=== PATIENT | female | born 1980 | race Caucasian/White ===

== ENCOUNTER 2016-08-31 07:49 | Inpatient (IN) | payer MEDICAID ==
[~2016-08-31] VITALS: Ht 160 cm; Wt 76.5 kg
[~2016-08-31 07:49] MED LIST: PREN1TAB74 PO
[2016-08-31 07:56] VITALS: Ht 160 cm; Wt 76.5 kg
[2016-08-31 07:57] VITALS: BP 133/84; PULSE 68; RESP 19
[2016-08-31] MEDS ORDERED: LACTATED RINGER'S 1,000 ML IV SCH (08:17)
[2016-08-31] MEDS ORDERED: OXYTOCIN 30 UNITS/LR 500 ML IV SCH ×2 (08:30)
[2016-08-31] MEDS ORDERED: METHYLERGONOVINE 0.2 MG INJ IM PRN ×2 (08:30→18:00)
[2016-08-31] MEDS ORDERED: OXYTOCIN 30 UNITS/LR 500 ML IV PRN ×2 (08:30→18:00)
[2016-08-31] MEDS ORDERED: MISOPROSTOL 200 MCG TAB PR PRN ×2 (08:30→18:00)
[2016-08-31] MEDS ORDERED: IBUPROFEN 600 MG TAB PO PRN (08:30)
[2016-08-31] MEDS ORDERED: LIDOCAINE 1% (MPF) 30 ML INJ INJ PRN (08:30)
[2016-08-31] MEDS ORDERED: CARBOPROST 250 MCG INJ IM PRN ×2 (08:30→18:00)
[2016-08-31 08:43] LABS: BASOPHILS % 0.4 % (0.0-2.0); EOSINOPHILS # 0.1 10^3/ul (0.0-0.5); EOSINOPHILS % 0.4 % (0.0-7.0); HEMATOCRIT 35.1 % (37.0-47.0); HEMOGLOBIN 12.2 g/dl (12.0-16.0); LYMPHOCYTES # 2.9 10^3/ul (0.8-2.9); LYMPHOCYTES % 22.9 % (15.0-51.0); MEAN CORPUSCULAR HEMOGLOBIN 33.9 pg (29.0-33.0); MEAN CORPUSCULAR HGB CONC 34.8 g/dl (32.0-37.0); MEAN CORPUSCULAR VOLUME 97.3 fl (82.0-101.0); MEAN PLATELET VOLUME 8.4 fl (7.4-10.4); MONOCYTE # 0.6 10^3/ul (0.3-0.9); MONOCYTES % 4.4 % (0.0-11.0); NEUTROPHILS % 71.9 % (39.0-77.0); PLATELET COUNT 187 10^3/UL (140-440); RED BLOOD COUNT 3.61 10^6/ul (4.20-5.40); RED CELL DISTRIBUTION WIDTH 13.9 % (11.5-14.5); UNCORRECTED WBC 12.6 10^3/ul (4.8-10.8); WHITE BLOOD COUNT 12.6 10^3/ul (4.8-10.8)
[2016-08-31 08:44] LABS: CONDITION 1
--- NOTE | 2016-08-31 08:44 | TRIAGE ---
OB Triage Datetime Report Generated by CPN: 08/31/2016 08:43 Datetime: 08/31/2016 08:30 Labor Evaluation Frequency: IRREGULAR Monitor Mode: External Duration (sec)2399: 80 Quality: Moderate Pattern: Normal: <= 5 Contractions in 10 Minutes Resting Tone Hoyt: Relaxed Heart Rate FHR Baseline Rate: 120 Monitor Mode: External US FHR Baseline Changes: No Baseline Change Variability: Moderate 6-25 bpm Accelerations: 15X15 Decelerations: None Category: Category I Membrane Status: Intact Datetime: 08/31/2016 08:23 Assessment Type: Admission Assessment Vaginal Bleeding: None Maternal Assessment Level of Consciousness: Fully Conscious DTR's/Clonus: DTRs 2+; No Clonus Headache: Denies Blurred Vision: No Respiratory Effort: Unlabored; Regular Rhythm; Equal Expansion Breath Sounds, Left: Clear and Equal Breath Sounds, Right: Clear and Equal Nausea/Vomiting: Denies RUQ Epigastric Pain: Denies Lower Extremities Edema: None Degree: None Upper Extremities Edema: None Degree: None Facial Edema: None Fall Risk Assessment History of Falling: (0) No Secondary Diagnosis: (0) No Ambulatory Aid: (0) Bedrest/Nurse Assist IV Therapy: (0) No Gait: (0) Normal/Bedrest/Immobile Mental Status: (0) Oriented to Own Ability Fall Score: 0 Fall Risk Score Definition: No Risk: No action required Labor Evaluation Frequency: 5 Duration (sec)2399: 80 Quality: Moderate Pattern: Normal: <= 5 Contractions in 10 Minutes Resting Tone Hoyt: Relaxed Heart Rate FHR Baseline Rate: 120 Variability: Moderate 6-25 bpm Decelerations: None Category: Category I Pain Assessment Pain Scale: 9 Pain Presence: Intermittent Pain Type: Cramping; Contraction Pain Location: Abdomen; Back Pain Goal: 5 Vaginal Exam Dilatation (cms): 3.0 Effacement (%): 100 Station: -2 Membrane Status: Intact Datetime: 08/31/2016 08:22 Assessment Type: Admission Assessment Maternal Assessment Level of Consciousness: Fully Conscious DTR's/Clonus: DTRs 2+; No Clonus Headache: Denies Blurred Vision: No Respiratory Effort: Unlabored; Regular Rhythm; Equal Expansion Breath Sounds, Left: Clear and Equal Breath Sounds, Right: Clear and Equal Nausea/Vomiting: Denies RUQ Epigastric Pain: Denies Lower Extremities Edema: None Degree: None Upper Extremities Edema: None Degree: None Facial Edema: None Fall Risk Assessment History of Falling: (0) No Secondary Diagnosis: (0) No Ambulatory Aid: (0) Bedrest/Nurse Assist IV Therapy: (0) No Gait: (0) Normal/Bedrest/Immobile Mental Status: (0) Oriented to Own Ability Fall Score: 0 Fall Risk Score Definition: No Risk: No action required Datetime: 08/31/2016 08:16 Time of Arrival: 08/31/2016 08:16 EGA: 39.6 Arrived By: Wheelchair Datetime: 08/31/2016 08:13 Maternal Assessment Level of Consciousness: Fully Conscious DTR's/Clonus: DTRs 1+ Headache: Denies Blurred Vision: No Respiratory Effort: Unlabored Breath Sounds, Left: Clear and Equal Breath Sounds, Right: Clear and Equal Nausea/Vomiting: Denies RUQ Epigastric Pain: Denies Facial Edema: 1+ Labor Evaluation Frequency: IRREGULAR Monitor Mode: External Duration (sec)2399: 40-50 Quality: Mild Pattern: Normal: <= 5 Contractions in 10 Minutes Resting Tone Hoyt: Relaxed Heart Rate FHR Baseline Rate: 120 Monitor Mode: External US Variability: Moderate 6-25 bpm Accelerations: 10X10 Decelerations: None Category: Category I Pain Assessment Pain Scale: 6 Pain Presence: Intermittent Pain Type: Contraction Pain Location: Back Pain Goal: 3 Pain Relief Measures: Pain Medication Given Membrane Status: Intact Datetime: 08/31/2016 07:57 Vaginal Exam Dilatation (cms): 3.0 Effacement (%): 100 Station: -2 Exam By: ANSHUL MARR Vaginal Bleeding: None Cervix, Consistency: Soft Cervix, Position: Anterior Presentation 'A': Cephalic Datetime: 08/31/2016 07:52 Assessment Type: Triage Maternal Assessment Level of Consciousness: Fully Conscious DTR's/Clonus: DTRs 2+; No Clonus Headache: Denies Blurred Vision: No Respiratory Effort: Unlabored; Regular Rhythm; Equal Expansion Breath Sounds, Left: Clear and Equal Breath Sounds, Right: Clear and Equal Nausea/Vomiting: Denies RUQ Epigastric Pain: Denies Lower Extremities Edema: None Degree: None Upper Extremities Edema: None Degree: None Facial Edema: None Fall Risk Assessment History of Falling: (0) No Secondary Diagnosis: (0) No Ambulatory Aid: (0) Bedrest/Nurse Assist IV Therapy: (0) No Gait: (0) Normal/Bedrest/Immobile Mental Status: (0) Oriented to Own Ability Fall Score: 0 Fall Risk Score Definition: No Risk: No action required Datetime: 08/31/2016 07:51 EGA: 39.6 Datetime: 08/31/2016 07:43 Time of Arrival: 08/31/2016 07:43 Arrived By: Wheelchair Arrived From: Home Chief Complaint: PT CAME IN C/O UC'S Q 5 MIN Movement: Present Contractions: Regular Contractions: 5 MIN Rupture of Membranes: Denies Vaginal Bleeding: None Vaginal Discharge: Denies Recent Sexual Intercouse: Denies Abdominal Trauma: Not Applicable Patient Complaints: Contractions Additional Patient Complaints: NONE Time Provider Notified: 08/31/2016 08:10 Provider Notified: DIMPLE Initial Plan: MONITOR AND VE
[2016-08-31 08:50] LABS: INR 0.87; PROTIME 11.8 Sec (12.2-14.2); PT RATIO 0.9
[2016-08-31 08:51] LABS: PARTIAL THROMBOPLASTIN TIME 24.6 Sec (25.0-35.0)
[2016-08-31] MEDS ORDERED: NALOXONE (0.4 MG/ML) INJ IV PRN (09:00)
[2016-08-31] MEDS ORDERED: ONDANSETRON 4 MG INJ IV PRN (09:00)
[2016-08-31] MEDS ORDERED: LACTATED RINGER'S 1,000 ML IV PRN (09:00)
[2016-08-31] MEDS ORDERED: FENTAnyl 2MCG/ML-ROPIV 0.2% 100 ML BAG EPI SCH (09:00)
[2016-08-31] MEDS ORDERED: DIPHENHYDRAMINE 50 MG INJ IV PRN (09:00)
[2016-08-31 10:34] LABS: URIC ACID 4.6 mg/dl (3.1-7.9)
--- NOTE | 2016-08-31 17:40 | LDN ---
Date/Time of Note Date/Time of Note DATE: 08/31/16 TIME: 17:37 Delivery Summary of a viable baby girl weighing 3255 grams or 7# 3 oz, 19" long and with Apgars of 9/9. Placenta Delivered: Spontaneously Meconium: none Perineum intact?: No Perineal laceration: 1 Perineal laceration repair: First degree perineal laceration repaired with 2-0 chromic. Anesthesia type: Epidural Estimated blood loss: 200 Sponge & Needle done & correct: Yes All needle counts correct: Yes Any foreign bodies felt in the: No (vagina) Problems: Infant Delivery Information Sex Sex: female Apgars 1 Minute: 9 5 Minute: 9 Suctioning Nose & mouth suctioned at kay: No Delee suction performed: No Umbilical Cord Umbilical cord with: 3 Vessels Cord presentations: no nuchal cord Cord Blood was obtained: Yes Mother & Baby Disposition Disposition Mom & Baby to Maternity; Good: Yes Baby to NICU: No CHRISTOPHER MUSA MD Aug 31, 2016 17:39
--- NOTE | 2016-08-31 17:50 | HP ---
Date/Time of Note Date/Time of Note DATE: 08/31/16 TIME: 17:44 OB - History Hx of Present Free Text/Dictation 36 y.o. with an IUP at 39 weeks 6 days came in labor with a cervical exam of 3cm/ 100% effaced/ -2/vtx/intact. PMHx: negative. PSHx: negative. All: PCN. POBHx: x 1 at 38 weeks, fast delivery, 5# 6 oz, son with horseshoe kidney. Last Menstrual Period: Nov 26, 2015 Estimated Due Date: Sep 01, 2016 : 2 Para: 1 Care: Good Care Ultrasounds: Normal mid trimester US Obstetrical Complications: None Past Family/Social History * Past Medical, Surgical, Family and Obstetric Histories reviewed from chart. Blood Type: A+ Rubella: immune RPR/VDRL: Negative GBS Status: Negative HBsAG: Negative OB Admission Exam Vital Signs Vital Signs Vital Signs Date Time Temp Pulse Resp B/P Pulse Ox O2 Delivery O2 Flow Rate FiO2 08/31/16 07:57 98.6 68 19 133/84 99 Room Air Physical Exam HEENT: WNL Heart: Rhythm Normal Lungs: Clear Abdomen: WNL Extremities: Edema (2+) Reflexes: Normal Cervical Dilatation: 3cm Effacement: 100% Station: -2 Membranes: Intact Heart Rate: 140's Varibility: Moderate Contractions on Admission: < 5 Minutes Apart Intensity: Firm Last 72 hours Lab Results CBC & BMP 08/31/16 08:25 Liver Function Test 08/31/16 08:25 Alanine Aminotransferase (ALT/SGPT) 20 Aspartate Amino Transf (AST/SGOT) 21 OB Assessment/Plan Reason for admission: active labor Plan: Expectant Management CHRISTOPHER MUSA MD Aug 31, 2016 17:50
[2016-08-31] MEDS ORDERED: OXYCODONE/ASPIRIN (4.88/325) TAB PO PRN (18:00)
[2016-08-31] MEDS ORDERED: LANOLIN 7 GM TUBE TOP PRN (18:00)
--- NOTE | 2016-08-31 18:14 | DELSUM ---
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 Babies in Womb: 1 Attempted: No Labor Anesthesia: Epidural LABOR INFORMATION Reason for Induction: Not Applicable Onset of Labor: 08/31/2016 04:00 Complete Dilatation: 08/31/2016 14:51 Oxytocin: N/A Group B Beta Strep: Negative Group B Beta Strep: Negative Antibiotics # of Doses: 0 Antibiotics Time of Last Dose: 0 Steroids Given: None Reason Steroids Not Administered: Not Applicable MEMBRANES Membranes Rupture Method: Spontaneous Rupture of Membranes: 08/31/2016 14:42 Length of Rupture (hr): 0.28 Amniotic Fluid Color: Clear Amniotic Fluid Amount: Large Amniotic Fluid Odor: Normal STAGES OF LABOR Stage 1 hr: 10 Stage 1 min: 51 Stage 2 hr: 0 Stage 2 min: 8 Stage 3 hr: 0 Stage 3 min: 8 Total Time in Labor hr: 11 Total Time in Labor min: 7 VAGINAL DELIVERY Episiotomy: None Laceration Extension: First Degree Laceration Type: Perineal Laceration Repair: Yes Initial Vag Sponge Count: 20 Final Vag Sponge Count: 20 Initial Vag Sharps Count: 2 Final Vag Sharps Count: 2 Sponge Count Correct: Yes; Vaginal Sweep Performed Sharps Count Correct: Yes BABY A INFORMATION Infant Delivery Date/Time: 08/31/2016 14:59 Method of Delivery: Vaginal Method of Delivery: Vaginal Born in Route : No : N/A Forceps: N/A Vacuum Extraction: N/A Shoulder Dystocia : N/A SHOULDER DYSTOCIA BABY A Delivery Date/Time: 08/31/2016 14:59 PRESENTATION/POSITION BABY A Presentation: Cephalic Presentation: Cephalic Presentation: Cephalic Presentation: Cephalic Presentation: Cephalic Presentation: Cephalic Presentation: Cephalic Cephalic Presentation: Vertex Vertex Position: Left Occipital Anterior Breech Presentation: N/A PLACENTA INFORMATION BABY A Placenta Delivery Time : 08/31/2016 15:07 Placenta Method of Delivery: Spontaneous Placenta Status: Delivered SCORES BABY A Heart Rate 1 min: >100 bpm Resp Effort 1 min: Good Cry Reflex Irritability 1 min: Cough/Sneeze/Pulls Away Muscle Tone 1 min: Active Motion Color 1 min: Body Donora, Extremit Blue Resuscitation Effort 1 min: Tactile Stimulation SCORE 1 MIN: 9 Heart Rate 5 min: >100 bpm Resp Effort 5 min: Good Cry Reflex Irritability 5 min: Cough/Sneeze/Pulls Away Muscle Tone 5 min: Active Motion Color 5 min: Body Donora, Extremit Blue Resuscitation Effort 5 min: Tactile Stimulation SCORE 5 MIN: 9 INFORMATION BABY A Gestational Age at Delivery: 39.6 Gestational Status: Full Term- 39- 40.6 Weeks Infant Outcome : Liveborn Condition : Stable Sex: Female Infant Sex: Female IDENTIFICATION/MEDS BABY A ID Band Number: [id number] ID Band Location: Right Leg; Left Arm Sensor Applied: Yes Sensor Number: [id number] Sensor Location : Cord Clamp Vitamin K Given : Not Given Erythromycin Given: Not Given WEIGHT/LENGTH BABY A Infant Birthweight (gm): 3255 Weight (lb): 7 Weight (oz): 3 Infant Length (in): 19.00 Infant Length (cm): 48.26 CORD INFORMATION BABY A No. Cord Vessels: 3 Nuchal Cord : N/A Nuchal Cord- Other: 0 True Knot: 0 Cord Blood Taken: Yes Banking/Donate Info: NO Suction: Mouth; Nose ASSESSMENT BABY A Infant Complications: Multiple Variable Decels Physical Findings at Delivery: Within Normal Limits [place] Spray Unit Feeder/ALS Called : No Infant Care By: Bessie SOUSA RN Transferred To: Remains with Mother
--- NOTE | 2016-08-31 18:14 | OPRPT ---
Intraop Record Datetime Report Generated by CPN: 08/31/2016 18:13 Datetime: 08/31/2016 16:42 Sequential Compression Device: Yes Datetime: 08/31/2016 15:12 Sequential Compression Device: N/A Datetime: 08/31/2016 07:58 Drug Allergies/Reactions: Penicillins (08/31/2016); amoxicillin/SV (08/31/2016) Datetime: 08/31/2016 07:52 Food Allergies/Reactions: NONE Latex Allergies/Reactions: No Latex Allergies Datetime: 08/31/2016 07:49 Drug Allergies/Reactions: Penicillins (10/31/2014); amoxicillin/SV (10/31/2014)
[2016-08-31 18:35] VITALS: BP 113/66; PULSE 72; RESP 18
[2016-08-31] MEDS: IBUPROFEN 600 MG TAB PO SCH ×2 (18:50→23:24)
[2016-08-31] MEDS: BENZOCAINE 20% 56 ML SPRAY TOP PRN (18:50)
[2016-08-31] MEDS: WITCH HAZEL/GLYCERIN PAD PR PRN (18:50)
[2016-08-31 20:10] VITALS: BP 122/68; PULSE 75; RESP 18
[2016-09-01] MEDS: LACTATED RINGER'S 1,000 ML IV* SCH ×2 (01:33→04:03)
[2016-09-01] MEDS: IBUPROFEN 600 MG TAB PO SCH ×3 (05:34→17:09)
[2016-09-01 05:55] VITALS: BP 120/80; PULSE 67
[2016-09-01 07:30] VITALS: BP 126/73; PULSE 64; RESP 16
[2016-09-01 08:14] LABS: EOSINOPHILS # 0.1 10^3/ul (0.0-0.5); EOSINOPHILS % 0.6 % (0.0-7.0); HEMATOCRIT 31.9 % (37.0-47.0); LYMPHOCYTES # 2.6 10^3/ul (0.8-2.9); LYMPHOCYTES % 21.4 % (15.0-51.0); MEAN CORPUSCULAR HEMOGLOBIN 33.9 pg (29.0-33.0); MEAN CORPUSCULAR HGB CONC 34.5 g/dl (32.0-37.0); MEAN CORPUSCULAR VOLUME 98.2 fl (82.0-101.0); MEAN PLATELET VOLUME 8.2 fl (7.4-10.4); MONOCYTE # 0.6 10^3/ul (0.3-0.9); MONOCYTES % 4.8 % (0.0-11.0); NEUTROPHILS % 73.2 % (39.0-77.0); PLATELET COUNT 159 10^3/UL (140-440); RED BLOOD COUNT 3.25 10^6/ul (4.20-5.40); UNCORRECTED WBC 12.3 10^3/ul (4.8-10.8); WHITE BLOOD COUNT 12.3 10^3/ul (4.8-10.8)
[2016-09-01 08:17] LABS: CONDITION 1
[2016-09-01 15:30] VITALS: BP 123/64; PULSE 73; RESP 18
[2016-09-01 20:00] VITALS: BP 133/77; PULSE 69; RESP 20
[2016-09-02] MEDS: IBUPROFEN 600 MG TAB PO SCH ×3 (00:08→11:52)
[2016-09-02] MEDS: WITCH HAZEL/GLYCERIN PAD PR PRN (00:09)
[2016-09-02] MEDS: BENZOCAINE 20% 56 ML SPRAY TOP PRN (00:09)
--- NOTE | 2016-09-02 00:55 | PD.PPDC ---
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
--- NOTE | 2016-09-02 00:57 | DS ---
Date/Time of Note Date/Time of Note DATE: 09/02/16 TIME: 00:55 Obstetrical Discharge Record Final Diagnosis Final Diagnosis: Term delivered Vaginal Delivery Obstetrical Delivery: Spontaneous, Laceration, Repaired Complications Augmentation: No Induction: No Condition on Discharge Physical Assessment Last Vitals: T=98.3 BP = 133/77. Voiding: Yes Bowel Movement: Yes Breast: Soft, non-tender, Filling Fundus: Firm Calf Tenderness: No Patient Condition: Good CHRISTOPHER MUSA MD Sep 02, 2016 00:57
[2016-09-02 04:00] VITALS: BP 125/72; PULSE 72; RESP 20
[2016-09-02 08:00] VITALS: BP 126/80; RESP 18
[2016-09-02] MEDS ORDERED: DIBUCAINE 1% 30 GM OINT TOP PRN (08:30)
[2016-09-02] MEDS ORDERED: DIPHTH/TET/ACEL PERTUSS (ADULT) 0.5 ML VIAL IM* ONE (09:00)
[2016-09-02 16:00] VITALS: BP 119/70; PULSE 18; RESP 18
== END 2016-09-02 18:25 | disposition home or self-care (01) | DRG 775 ==
LOC: OBT 07:49 → L-D 07:50 → OBT 08:13 → L-D 08:14 → PP1 18:28
PROVIDERS: ADMIT Obstetrics & Gynecology; ATTEND Obstetrics & Gynecology
PROC: 10E0XZZ Delivery of Products of Conception, External Approach (ICD-10-PCS; principal; 2016-08-31)
PROC: 0HQ9XZZ Repair Perineum Skin, External Approach (ICD-10-PCS; 2016-08-31)
DX: O70.0 First degree perineal laceration during delivery (principal); O09.523 Supervision of elderly multigravida, third trimester; Z3A.39 39 weeks gestation of pregnancy; Z37.0 Single live birth
CPT/HCPCS: 62319; 84450; 84460; 84560; 85025; 85610; 85730; 86592; 86900; 86901; 90715; G0463; J3010; J7120